=== PATIENT | female | born 1950 | race Caucasian/White ===

== ENCOUNTER → 2016-07-30 17:27 | Outpatient (CLI) | payer MEDICARE | END | disposition home or self-care (01) | LOC: D.MAMMO 07-10 16:15 | DX: Z12.31 Encounter for screening mammogram for malignant neoplasm of breast (principal) ==

== ENCOUNTER 2016-12-16 19:08 | Emergency (ER) | payer MEDICARE, OTHER | END 2016-12-16 21:52 | disposition home or self-care (01) | LOC: D.ER 19:08 | DX: K02.9 Dental caries, unspecified (principal); K08.89 Other specified disorders of teeth and supporting structures; K04.7 Periapical abscess without sinus; E11.9 Type 2 diabetes mellitus without complications; I10 Essential (primary) hypertension ==

== ENCOUNTER 2019-02-09 08:00 | Outpatient (CLI) | payer MEDICARE, OTHER | END 2019-02-09 23:59 | disposition home or self-care (01) | LOC: D.MAMMO 08:00 | PROVIDERS: ATTEND Nurse Practitioner Family | DX: Z12.31 Encounter for screening mammogram for malignant neoplasm of breast (principal) ==

== ENCOUNTER 2019-10-18 07:40 | Outpatient (CLI) | payer MEDICARE, OTHER ==
[~2019-10-18] VITALS: Ht 165.1 cm; Wt 100.0 kg
[2019-10-18 08:39] LABS: ANION GAP 9.6 mmol/L (8-16); CALCIUM 8.9 mg/dL (8.5-10.1); CARBON DIOXIDE 31.3 mmol/L (21.0-32.0); CREATININE - SERUM 1.6 mg/dL (0.6-1.3); POTASSIUM - SERUM 3.9 mmol/L (3.5-5.1)
[2019-10-18 08:46] LABS: APTT 23.6 SECONDS (22.8-39.4); INR 0.93 (0.85-1.17); PROTIME 12.4 SECONDS (11.6-15.0)
[2019-10-18] MEDS ORDERED: LIPITOR10 MG (08:57)
[2019-10-18] MEDS ORDERED: TYLENOL W/CODEI1 TAB PO (08:57)
[2019-10-18] MEDS ORDERED: VALIUM5 MG PO (08:58)
[2019-10-18] MEDS ORDERED: CYMBALTA30 MG PO (08:59)
[2019-10-18] MEDS ORDERED: BENTYL 20 MG TA20 MG PO (08:59)
[2019-10-18] MEDS ORDERED: LEVEMIR IN100 UNITS/ SC (08:59)
[2019-10-18] MEDS ORDERED: MUPIROCIN22 GM TOPICAL (09:00)
[2019-10-18] MEDS ORDERED: LEVOXYL125 MCG PO (09:00)
[2019-10-18] MEDS ORDERED: OMEPRAZOLE20 M1 PO (09:01)
[2019-10-18] MEDS ORDERED: NOVOLIN 70/30 110 ML SC (09:01)
[2019-10-18] MEDS ORDERED: CARAFATE1 G PO (09:04)
[2019-10-18 09:11] LABS: BASOPHILS 0.7 % (0-2); EOSINOPHILS 2.8 % (0-7); HEMATOCRIT 42.8 % (36.0-48.0); HEMOGLOBIN 13.6 g/dL (12-16); IMMATURE GRANULOCYTES 0.9 % (0-5); MCH 27.4 pg (26.0-34.0); MCHC 31.8 g/dL (31.0-37.0); MCV 86.1 fL (80.0-100.0); MEAN PLATELET VOLUME 11.4 fL (7.4-10.4); MONOCYTES 6.7 % (2-11); NEUTROPHILS 58.9 % (40-80); RBC 4.97 10x6/uL (4.00-5.40); RDW 13.7 % (11.5-14.5); WBC 5.4 10x3/uL (4.8-10.8)
[2019-10-18 09:12] VITALS: Ht 165.1 cm; Wt 100.0 kg
[2019-10-18 09:19] LABS: PLATELET COUNT 30 10x3/uL (130-400)
--- NOTE | 2019-10-18 09:45 | NUR ---
0945US ORDERED. READY FOR BONE MARROW.
[2019-10-18 10:38] LABS: PLATELET ESTIMATE DECREASED
--- NOTE | 2019-10-18 11:37 | NUR ---
1130 SEE POST PROCEDURE CHECKLIST FOR VITAL SIGN TRENDS. O2 3L NC. WATER AND DIET [place] SERVED.
--- NOTE | 2019-10-18 11:45 | NUR ---
1145 NO BLEEDING NOR HEMATOMA, TIME FRAME FOR TODAYS' STAY GIVEN. PT. ATTEMPTING TO GET IN TOUCH WITH HER SON TO GIVE HIM THE TIME FRAME.
== END 2019-10-18 12:44 | disposition home or self-care (01) ==
LOC: D.SP 07:40 → D.US 09:30 → D.CT 10:00 → D.SP 12:44
PROVIDERS: General Practice; ATTEND Internal Medicine Hematology & Oncology
DX: D69.49 Other primary thrombocytopenia (principal); E03.9 Hypothyroidism, unspecified; E11.9 Type 2 diabetes mellitus without complications; E78.2 Mixed hyperlipidemia; Z79.4 Long term (current) use of insulin; I10 Essential (primary) hypertension; K21.9 Gastro-esophageal reflux disease without esophagitis